=== PATIENT | male | born 2005 | race Caucasian/White ===

== ENCOUNTER 2023-06-29 00:14 | Emergency (ER) | payer OTHER ==
[~2023-06-29] VITALS: Ht 175.3 cm; Wt 86.2 kg
[~2023-06-29 00:14] MED LIST: AMOX-999 PO
[2023-06-29 00:52] VITALS: BP 136/76; PULSE 76; RESP 16; TEMP 97.3; O2SAT 100
[2023-06-29] MEDS ORDERED: diphenhydrAMINE 50 MG/ML VIAL IVP ONE (05:05)
[2023-06-29] MEDS ORDERED: KETOROLAC 30 MG/ML VIAL IVP ONE (05:05)
[2023-06-29] MEDS ORDERED: METOCLOPRAMIDE 10 MG/2 ML INJ VIAL IVP ONE (05:05)
[2023-06-29] MEDS ORDERED: NACL 0.9% 1,000 ML IV ONE (05:05)
[2023-06-29 05:24] LABS: BASOPHILS % (AUTO) 0.2 % (0.0-2.0); EOSINOPHILS % (AUTO) 0.4 % (0.0-4.0); HEMATOCRIT 42.9 % (36-52); HEMOGLOBIN 15.1 g/dL (12.0-18.0); LYMPHOCYTES # (AUTO) 1.2 K/uL (2.0-11.5); LYMPHOCYTES % (AUTO) 11.9 % (20.5-51.1); MEAN CORPUSCULAR HEMOGLOBIN 29 pg (27-31); MEAN CORPUSCULAR HGB CONC 35 g/dL (33-37); MEAN CORPUSCULAR VOLUME 82.2 fL (80-94); MONOCYTES # (AUTO) 0.4 K/uL (0.8-1.0); MONOCYTES % (AUTO) 3.8 % (1.7-9.3); NEUTROPHILS # (AUTO) 8.3 K/uL (1.8-7.7); NEUTROPHILS % (AUTO) 83.7 % (42.2-75.2); PLATELET COUNT (AUTO) 169 K/uL (140-450); RED BLOOD CELL COUNT(AUTO) 5.23 MIL/uL (4.20-6.10); RED CELL DISTRIBUTION WIDTH 12.9 % (11.6-13.7)
[2023-06-29 05:44] LABS: ANION GAP 10.2 (8-16); CALCIUM 9.3 mg/dL (8.5-10.1); CREATININE 1.1 mg/dL (0.6-1.3); POTASSIUM 4.2 mmol/L (3.5-5.1)
[2023-06-29] MEDS ORDERED: ACET-10509 PO (06:42)
[2023-06-29 06:48] VITALS: BP 136/76; PULSE 76; RESP 16; TEMP 97.3; O2SAT 100
== END 2023-06-29 06:48 | disposition home or self-care (01) ==
LOC: MED 00:14
DX: J06.9 Acute upper respiratory infection, unspecified (principal); R51.9 Headache, unspecified; Z20.822 Contact with and (suspected) exposure to COVID-19; Z90.49 Acquired absence of other specified parts of digestive tract; Z79.2 Long term (current) use of antibiotics
CPT/HCPCS: 36415; 80048; 85025; 87426; 96361; 96374; 96375; 99284; J1200; J1885; J2765; J7030